=== PATIENT | male | born 1965 | race Caucasian/White ===

== ENCOUNTER 2020-08-09 10:28 | Emergency (ER) | payer OTHER, SELFPAY ==
--- OUTSIDE RECORDS SUMMARY | 2020-08-09 10:40 | XMS REPORT | Clinical Summary ---
:1965 Author Organization [facility] Address [address] [place] [address] Care Team Providers Name Role Phone Asked, Pcp Primary Care Provider Unavailable Allergies No Known Active Allergies Medications Medication Sig Dispensed Refills Start Date End Date Status atorvastatin Take 80 mg by 0 Act finesse (LIPITOR) 80 MG mouth daily. tablet atenolol (TENORMIN) Take 25 mg by 0 Active 25 MG tablet mouth daily. therapeutic Take 1 tablet by 0 A ctive multivitamin mouth daily. (THERAGRAN) tablet MOVANTIK 12.5 mg TAKE 1 TABLET 10 tablet 0 07/21/2019 Active tablet tablet (12.5 MG TOTAL) BY MOUTH DAILY FOR 10 DAYS. riFAMpin (RIFADIN) Take 1 capsule 82 capsule 0 07/04/201908/03 300 MG capsule (300 mg total) by mouth 2 (two) times a day for 41 days. ceFAZolin in 0.9% Infuse 50 mL (2 4500 mL 1 07/04/201908/14 sodium chloride g total) into a (ANCEF) 2 gram/50 mL venous catheter IVPB every 8 (eight) hours for 41 days. oxyCODone-acetaminop Take 1 tablet by 30 tablet 0 07/14/2019 0 08/13/2019 hen (PERCOCET) mouth every 4 10-325 mg per (four) hours as tabletIndications: needed for acute pain moderate pain for up to 30 days .Acute Pain. Max Daily Amount: 6 tablets Active Problems Problem Noted Date Infection of olecranon bursa, left 06/29/2019 Encounters Date Type Specialty Care Team Description 09/01/2019 Abstract Orthopedic Surgery Annie Galeano, ASHA 08/31/2019 Office Visit Orthopedic Surgery Ryder Simpson MD Trau matic arthritis elbow, left (Primary Dx); Status post so dware removal; S/P cubital baljinder aleks release; Aftercare follo wing surgery after 08/09/2019 Immunizations Name Administration Dates Next Due FLUCELVAX QUAD PF 07/04/2019 Surgical History Surgery Date Site/Laterality Comments ELBOW SURGERY 05/03/2003 - Left reconstruction 06/02/2003 REMOVAL, HARDWARE, 06/29/2019 Elbow/Left Procedure: LE FT ELBOW ELBOW HARDWARE REMOVAL AND CONTRACTURE RELE ASE; Surgeon: Ryder Simpson MD; Location: [facility] OP C 19 OR; Service: Orthope dics; Laterality: Left ; Medical History Medical History Date Comments Anesthesia NHAP; NFHAP Wears glasses for night driving Dental bridge present upper front perman ent Hypertension Hypercholesteremia Exercises daily rides bike, swim,ski ing and very active and climb stairs with no chest pain o r sob. Infection INFECTED HARDWARE LE FT ELBOW Social History Tobacco Use Types Packs/Day Years Used Date Current Every Day Smoker Cigars 3 Smokeless Tobacco: Never Used Comments: less than 1 cigar per week Alcohol Use Drinks/Week oz/Week Comments Yes 5 drinks per wee k Sex Assigned at Date Recorded Male 06/24/2019 10:17 AM [employer] Last Filed Vital Signs Not on file Plan of Treatment Health Maintenance Due Date Last Done Comments COVID-19 VACCINE (#1) 1981 COLONOSCOPY SCREENING 2015 SHINGLES VACCINES (#1) 2015 INFLUENZA VACCINE 03/03/2020 07/04/2019 Procedures Procedure Name Priority Date/Time Associated Diagnosis Comme nts XR ELBOW 2 VW LEFT Routine 08/31/2019 2:15 PM Traumatic arthr itis Results for this [employer] elbow, left procedure are in Status post hardware the res ults removal section. S/P cubital tunnel release Aftercare following surgery after 08/09/2019 Results XR Elbow 2 Vw Left (08/31/2019 2:15 PM [employer]) Specimen Narrative Performed At This result has an attachment that is no t available. Elbow reduced, some hardware retained, some post traumatic arthrosis [facility] Performing Organization Address City/State/ZIP Code Phon e Number [facility] [address] [place] [address] after 08/09/2019 [facility] [address] (Home) [facility] [phone] [place] [address] (Work) Advance Directives For more information, please contact: [phone] Type Date Recorded Patient Manager Hospital Explanati on Advance Directives, Living 06/29/2019 9:11 AM Will and Medical Power of Mission Manager
[2020-08-09 11:11] LABS: Basophils % 0.3 % (0-1.3); Hematocrit 32.7 % (39.6-49.0); Lymphocytes % 7.5 % (15.3-44.8); MPV 7.8 fL (7.6-11.3); RBC Red Blood Cell Count 3.63 M/uL (4.33-5.43)
--- NOTE | 2020-08-09 11:27 | RAD REPORT ---
EXAM DESCRIPTION: CT - Femur Left Wo Con - 08/09/2020 11:06 am CLINICAL HISTORY: Pain. unable to bear weight Trauma, pain and swelling. COMPARISON: No comparisons FINDINGS: Significant enlargement of the biceps femoris muscle is noted. There is large intramuscula r crescentic hematoma within the muscle measuring 3 cm in thickness. This is compatible with a signif icant intramuscular tear. The skin and adjacent subcutaneous fat she was inflammatory fat stranding. 5 cm hematoma is present as well deep to the left gluteus muscle. Overall soft tissue assessment is l imited by CT. No acute fracture or dislocation seen. No aggressive bone lesion. IMPRESSION: Significant intramuscular tear with intramuscular hematoma formation involving biceps fe ashli hamstring muscle. No fractures appreciated. MRI imaging could be obtained for followup assessment and superior soft tissue assessment. All CT scans are performed using dose optimization technique as appropriate and may include automated exposure control or mA/KV adjustment according to patient size.
--- NOTE | 2020-08-09 11:41 | ER ---
Nurse's Notes [facility] Name: Clayton Hyatt Age: 55 yrs Sex: Male : 1965 Arrival Date: 08/09/2020 Time: 10:29 Bed 18 Private MD: Diagnosis: Acute Biceps Femoris Tear left leg;Hematoma left leg Presentation: 08/09 10:30 Chief complaint: Patient states: Injured L leg 8 days ago while snow boarding. Sudden ll1 onset of pain at work today to LUE. No new trauma or falls since initial accident. Coronavirus screen: Client denies travel out of the [place] in the last 14 days. At this time, the client does not indicate any symptoms associated with coronavirus-19. Ebola Screen: Patient denies travel to an Ebola-affected area in the 21 days before illness onset. Initial Sepsis Screen: Does the patient meet any 2 criteria? No. Patient's initial sepsis screen is negative. Does the patient have a suspected source of infection? No. Patient's initial sepsis screen is negative. Risk Assessment: Do you want to hurt yourself or someone else? Patient reports no desire to harm self or others. Onset of symptoms was August 02, 2020. 10:30 Method Of Arrival: EMS: [facility] ll1 10:30 Acuity: YOSE[facility]N 3 ll1 10:39 Chief complaint: EMS states: 20 G R AC Fentanyl 50 mg IV x 3. ll1 Historical: - Allergies: 10:30 No Known Allergies; ll1 - PMHx: 10:30 Hypertension; High Cholesterol; ll1 - PSHx: 10:30 L arm FX with repair; ll1 - Immunization history:: Flu vaccine is not up to date. - Social history:: Smoking status: Patient denies any tobacco usage or history of. Screenin:32 Abuse screen: Denies threats or abuse. Nutritional screening: No deficits noted. ll1 Tuberculosis screening: No symptoms or risk factors identified. Fall Risk None identified. IV access (20 points). Gait- Weak (10 pts.). Total Bermudez Fall Scale indicates Low Risk Score (25-44 pts). Fall prevention measures have been instituted. Side Rails Up X 2 Frequent Obs/Assesments occuring As available Patient and Family Educated on Fall Prevention Program and strategies. Assessment: 10:30 General: Appears uncomfortable, Behavior is calm, cooperative, appropriate for age. ll1 Pain: Complains of pain in LUE Pain currently is 4 out of 10 on a pain scale. Quality of pain is described as aching, Aggravated by increased activity. Neuro: No deficits noted. Cardiovascular: No deficits noted. Respiratory: No deficits noted. Musculoskeletal: Circulation, motion, and sensation intact. Capillary refill < 3 seconds, Tenderness present in L lateral leg Reports pain in L lateral thigh/leg. Injury Description: Bruise. 11:30 Reassessment: No changes from previously documented assessment. Patient and/or family ll1 updated on plan of care and expected duration. Pain level reassessed. Patient is alert, oriented x 3, equal unlabored respirations, skin warm/dry/pink. 12:30 Reassessment: No changes from previously documented assessment. Patient and/or family ll1 updated on plan of care and expected duration. Pain level reassessed. Patient is alert, oriented x 3, equal unlabored respirations, skin warm/dry/pink. Patient states feeling better. 12:53 Reassessment: PMS intact pre and post splint application. . ll1 Vital Signs: 10:30 BP 111 / 76; Pulse 64; Resp 17; Temp 97.7; Pulse Ox 100% on R/A; Weight 75.75 kg; ll1 Height 5 ft. 7 in. (170.18 cm); Pain 4/10; 11:30 BP 135 / 86; Pulse 57; Resp 17; Pulse Ox 100% ; ll1 12:49 BP 142 / 80; Pulse 60; Resp 18; Pulse Ox 100% ; Pain 5/10; ll1 10:30 Body Mass Index 26.16 (75.75 kg, 170.18 cm) ll1 ED Course: 10:29 Patient arrived in ED. ll1 10:29 Arm band placed on Patient placed in an exam room, on a stretcher. ll1 10:32 Triage completed. ll1 10:33 Jonathan Haji PA is PHCP. jr8 10:33 Vernon Jay MD is Attending Physician. jr8 10:33 Lorelei Ansari RN is Primary Nurse. ll1 10:33 Patient has correct armband on for positive identification. Bed in low position. Call ll1 light in reach. Side rails up X 1. Pulse ox on. NIBP on. 10:58 Initial lab(s) drawn, by me, sent to lab. 3 11:03 CK Sent. dh3 11:03 Basic Metabolic Panel Sent. 3 11:03 CBC with Diff Sent. dh3 11:07 Femur Left Wo Con In Process Unspecified. EDMS 11:10 Maintain EMS IV. Dressing intact. Good blood return noted. Site clean \T\ dry. Gauge \T\ ll 1 site: 20 G R AC. 11:39 Dallas Lovell MD is Referral Physician. jr8 12:31 Crutch training done. Santo wrap to left knee Knee immobilizer applied on left knee. jp3 12:52 No provider procedures requiring assistance completed. IV discontinued, intact, ll1 bleeding controlled, No redness/swelling at site. Pressure dressing applied. Administered Medications: 11:49 Drug: morphine 4 mg Route: IVP; Site: right antecubital; ll1 12:53 Follow up: Response: No adverse reaction; Pain is decreased; RASS: Alert and Calm (0) 1 11:49 Drug: Zofran (Ondansetron) 4 mg Route: IVP; Site: right antecubital; ll1 12:53 Follow up: Response: No adverse reaction; RASS: Alert and Calm (0) ll1 Outcome: 11:40 Discharge ordered by . jr8 12:54 Discharged to home via wheelchair. 1 12:54 Condition: stable 12:54 Discharge instructions given to patient, Instructed on discharge instructions, follow up and referral plans. medication usage, crutch walking, Demonstrated understanding of instructions, follow-up care, medications, crutch walking, splint care, Prescriptions given X 2. 12:54 Patient left the ED. 1 Signatures: Dispatcher [employer] EDNY Jonathan Haji PA PA jr8 Katia Buenrostro 3 David Macias 3 Lorelei Ansari, RN RN ll1
--- NOTE | 2020-08-09 11:41 | EDPHYS ---
Physician Documentation [facility] Name: Clayton Hyatt Age: 55 yrs Sex: Male : 1965 Arrival Date: 08/09/2020 Time: 10:29 Bed 18 Private MD: ED Physician Vernon Jay HPI: 08/09 11:28 This 55 yrs old Male presents to ER via EMS with complaints of Leg Pain. jr8 11:28 The patient presents with decreased range of motion, pain, spasm, tenderness. The jr8 complaints affect the left hamstring. Onset: The symptoms/episode began/occurred acutely, today. Modifying factors: The symptoms are alleviated by nothing. the symptoms are aggravated by movement, weight bearing, bending knee. Associated signs and symptoms: The patient has no apparent associated signs or symptoms. The patient has not experienced similar symptoms in the past. The patient has not recently seen a physician. Patient stated that he has been healing from bruises secondary to snow board accidents on vacation. Had been doing well until today. Stated that he was at work standing drinking coffee when he had sudden spasm in back of left leg that caused him to go to the ground and not be able to walk. Patient brought in by EMS after being evaluated by [facility] med at work site . Historical: - Allergies: 10:30 No Known Allergies; ll1 - PMHx: 10:30 Hypertension; High Cholesterol; ll1 - PSHx: 10:30 L arm FX with repair; ll1 - Immunization history:: Flu vaccine is not up to date. - Social history:: Smoking status: Patient denies any tobacco usage or history of. ROS: 11:28 Eyes: Negative for injury, pain, redness, and discharge, ENT: Negative for injury, jr8 pain, and discharge, Neck: Negative for injury, pain, and swelling, Cardiovascular: Negative for chest pain, palpitations, and edema, Respiratory: Negative for shortness of breath, cough, wheezing, and pleuritic chest pain, Abdomen/GI: Negative for abdominal pain, nausea, vomiting, diarrhea, and constipation, Back: Negative for injury and pain, Skin: Negative for injury, rash, and discoloration, Neuro: Negative for headache, weakness, numbness, tingling, and seizure. 11:28 MS/extremity: Positive for ecchymosis, pain, swelling, tenderness, of the left hamstring. Exam: 11:28 Constitutional: This is a well developed, well nourished patient who is awake, alert, jr8 and in no acute distress. Cardiovascular: Regular rate and rhythm with a normal S1 and S2. No gallops, murmurs, or rubs. Normal PMI, no JVD. No pulse deficits. Respiratory: Lungs have equal breath sounds bilaterally, clear to auscultation and percussion. No rales, rhonchi or wheezes noted. No increased work of breathing, no retractions or nasal flaring. Abdomen/GI: Soft, non-tender, with normal bowel sounds. No distension or tympany. No guarding or rebound. No evidence of tenderness throughout. Back: No spinal tenderness. No costovertebral tenderness. Full range of motion. Skin: Warm, dry with normal turgor. Normal color with no rashes, no lesions, and no evidence of cellulitis. Neuro: Awake and alert, GCS 15, oriented to person, place, time, and situation. Cranial nerves II-XII grossly intact. Motor strength 5/5 in all extremities. Sensory grossly intact. 11:28 Musculoskeletal/extremity: Extremities: grossly normal except: noted in the left hamstring: Patient has circumferential swelling to left thigh with bruising noted to great trochanter region. Tender over the hamstring region. Mild pitting edema noted lateral thigh. Full ROM present but with pain. Pulses 2+ PT and DP right and left side , Sensation intact. Vital Signs: 10:30 BP 111 / 76; Pulse 64; Resp 17; Temp 97.7; Pulse Ox 100% on R/A; Weight 75.75 kg; ll1 Height 5 ft. 7 in. (170.18 cm); Pain 4/10; 11:30 BP 135 / 86; Pulse 57; Resp 17; Pulse Ox 100% ; ll1 12:49 BP 142 / 80; Pulse 60; Resp 18; Pulse Ox 100% ; Pain 5/10; ll1 10:30 Body Mass Index 26.16 (75.75 kg, 170.18 cm) ll1 MDM: 10:33 Patient medically screened. jr8 11:38 Data reviewed: vital signs, nurses notes, lab test result(s), radiologic studies, CT jr8 scan. Data interpreted: Pulse oximetry: on room air is 100 %. Interpretation: normal. Counseling: I had a detailed discussion with the patient and/or guardian regarding: the historical points, exam findings, and any diagnostic results supporting the discharge/admit diagnosis, lab results, radiology results, the need for outpatient follow up, a orthopedic surgeon, to return to the emergency department if symptoms worsen or persist or if there are any questions or concerns that arise at home. 08/09 10:46 Order name: CBC with Diff 8 08/09 10:46 Order name: Basic Metabolic Panel; Complete Time: 11:37 jr8 08/09 10:46 Order name: CK; Complete Time: 11:37 jr8 08/09 10:52 Order name: Femur Left Wo Con; Complete Time: 11:37 EDMS 08/09 11:39 Order name: Knee Immobilizer; Complete Time: 12:32 jr8 08/09 11:39 Order name: Crutches; Complete Time: 12:32 Administered Medications: 11:49 Drug: morphine 4 mg Route: IVP; Site: right antecubital; ll1 12:53 Follow up: Response: No adverse reaction; Pain is decreased; RASS: Alert and Calm (0) ll1 11:49 Drug: Zofran (Ondansetron) 4 mg Route: IVP; Site: right antecubital; ll1 12:53 Follow up: Response: No adverse reaction; RASS: Alert and Calm (0) ll1 Disposition: 15:57 Co-signature as Attending Physician, Vernon Jay MD I agree with the assessment and kdr plan of care. Disposition: 08/09/20 11:40 Discharged to Home. Impression: Acute Biceps Femoris Tear left leg, Hematoma left leg . - Condition is Stable. - Discharge Instructions: Muscle Pain, Adult. - Prescriptions for Robaxin 500 mg Oral Tablet - take 2 tablet by ORAL route every 6 hours As needed; 40 tablet. Tylenol- Codeine #3 300-30 mg Oral Tablet - take 2 tablets by ORAL route every 6 hours As needed; 20 tablet. - Medication Reconciliation Form, Thank You Letter, Antibiotic Education, Prescription Opioid Use, Work release form form. - Follow up: Dallas Lovell MD; When: 2 - 3 days; Reason: Recheck today's complaints, Continuance of care, Re-evaluation by your physician. - Problem is new. - Symptoms have improved. - Notes: Ice Rest Elevate Non weight bear on affected leg Signatures: Dispatcher [employer] EDMS Vernon Jay MD MD kdr Roszak, Josh, PA PA jr8 Lorelei Ansari RN RN ll1 Corrections: (The following items were deleted from the chart) 12:54 11:40 08/09/2020 11:40 Discharged to Home. Impression: Acute Biceps Femoris Tear left ll1 leg; Hematoma left leg . Condition is Stable. Forms are Medication Reconciliation Form, Thank You Letter, Antibiotic Education, Prescription Opioid Use. Follow up: Dallas Lovell; When: 2 - 3 days; Reason: Recheck today's complaints, Continuance of care, Re-evaluation by your physician. Problem is new. Symptoms have improved. jr8
[2020-08-09] MEDS ORDERED: MORPHINE 4 MG/ML SYR ONE (11:58)
[2020-08-09] MEDS ORDERED: ONDANSETRON 4 MG/2 ML VIAL ONE (11:59)
[2020-08-09 13:07] LABS: Platelet Estimate ADEQ; White Blood Cell Scan OK (OK)
[2020-08-09 13:08] LABS: Blood Morphology Comment NOT SEEN (NOT SEEN)
== END 2020-08-09 12:54 | disposition home or self-care (01) ==
LOC: ER 10:28
DX: S76.812A Strain of other specified muscles, fascia and tendons at thigh level, left thigh, initial encounter (principal); S80.12XA Contusion of left lower leg, initial encounter; X58.XXXA Exposure to other specified factors, initial encounter; Y93.23 Activity, snow (alpine) (downhill) skiing, snowboarding, sledding, tobogganing and snow tubing; Y92.9 Unspecified place or not applicable; I10 Essential (primary) hypertension
CPT/HCPCS: 85025; 80048; 36415; 82550; 73700; 96375; 96374; 99284; J2405

== ENCOUNTER 2024-07-02 15:56 | Emergency (ER) | payer OTHER ==
[2024-07-02 16:29] LABS: Absolute Basophils 0.1 K/uL (0-0.5); Absolute Lymphocytes (CBC) 2.2 K/uL (0.7-4.9); Absolute Neutrophil 26.5 K/uL (1.8-8.0); Basophils % 0.4 % (0-1.3); Hematocrit 48.9 % (39.6-49.0); Hemoglobin 15.9 g/dL (13.6-17.9); Lymphocytes % 7.1 % (15.3-44.8); MCH 29.2 pg (27.0-35.0); MCHC 32.5 g/dL (32.0-36.0); MPV 8.3 fL (7.6-11.3); Monocytes % 6.4 % (3.3-12.3); Neutrophils % 86.1 % (41.7-73.7); Platelets 313 thou/uL (152-406); RBC Red Blood Cell Count 5.43 M/uL (4.33-5.43); Red Cell Distribution Width 14.9 % (12.1-15.2)
[2024-07-02 16:42] LABS: Anion Gap 12.3 mEq/L (5.0-15.0); Potassium 3.3 mEq/L (3.5-5.1)
[2024-07-02] MEDS ORDERED: NA CHLORIDE 0.9% 1,000 ML ONE (16:45)
--- NOTE | 2024-07-02 16:47 | RAD REPORT ---
EXAMINATION: CT HEAD WITHOUT CONTRAST CT CERVICAL SPINE WITHOUT CONTRAST CLINICAL INDICATION: Male, 58 years old. TRAUMA TECHNIQUE: Axial CT images from the skull base to the vertex without intravenous contrast. Axial CT i mages through the cervical spine were obtained without intravenous contrast. Sagittal and coronal reformatted images were created from the data set. Coronal and sagittal reformatted images were creat ed from the data set. One or more of the following dose reduction techniques were used: Automated exposure control, adjustment of the mA and/or kV according to patient size, and/or iterative reconstr uction. Unless otherwise specified, incidental findings do not require dedicated imaging follow-up. [id number]. COMPARISON: No prior exam. FINDINGS: Head: INTRACRANIAL: No acute intracranial hemorrhage. No hydrocephalus. No mass effect or midline shift. No significant white matter disease. VASCULATURE: No visualized abnormalities in the arteries or dural venous sinuses. SCALP/SKULL: No significant soft tissue or osseous abnormalities. SINUSES: The visualized paranasal sinuses and mastoid air cells are predominantly clear. Cervical spine: ALIGNMENT: The cervical spine has normal alignment without scoliosis or spondylolisthesis. BONE: Vertebral body heights are maintained. No aggressive osseous lesions. Partial fusion of the pos terior elements at C2-3 is likely developmental. . DEGENERATIVE CHANGES: Neural foraminal narrowing is also present this level. Mild central spinal sten osis is present C5-6 secondary to posterior disc osteophyte complex. SOFT TISSUE: No significant abnormalities in the soft tissue of the neck. The visualized lung apices are clear. IMPRESSION: No acute intracranial abnormality. No acute fracture or traumatic malalignment of the cervical spine. Left supraclavicular hematoma with gas.
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
[2024-07-02 17:13] LABS: Albumin 3.4 g/dL (3.4-5.0); Albumin/Globulin Ratio 1.1 (1.1-1.8); Bilirubin Direct 0.2 mg/dL (0-0.2); Bilirubin Indirect, Calculated 0.3 mg/dL (0.2-0.8); Bilirubin Total 0.5 mg/dL (0.2-1.0); Globulin 3.2 g/dL (2.3-3.5); Protein, Total 6.6 g/dL (6.4-8.2)
[2024-07-02 17:25] LABS: PT Prothrombin Time 11.3 SECONDS (9.4-12.5); Protime INR 1.01
--- NOTE | 2024-07-02 17:36 | RAD REPORT ---
EXAMINATION: Shoulder Left 2+ Views CLINICAL INDICATION: Male, 58 years old. PAIN COMPARISON: No prior exam. FINDINGS: No acute fracture. No malalignment/dislocation. Mild left AC joint degenerative changes. Other: n/a IMPRESSION: No acute osseous abnormality.
[2024-07-02 19:24] LABS: Blood Morphology Comment NOT SEEN (NOT SEEN); Platelet Estimate ADEQ; White Blood Cell Scan OK (OK)
[2024-07-02 19:34] VITALS: TEMP 97.9; O2SAT 100
[2024-07-02 19:35] VITALS: BP 129/88
--- NOTE | 2024-07-03 14:11 | EKG ---
Test Date: 2024-07-02 Test Time: 16:53:22 Clutch Assembler: AM MEASUREMENT RESULTS: Intervals: Rate: 76 NH: 152 QRSD: 104 QT: 400 QTc: 450 Laura: P: 57 NH: 152 QRS: -17 T: 41 INTERPRETIVE STATEMENTS: Normal sinus rhythm Normal ECG Compared to ECG 07/04/2014 03:55:22 Sinus bradycardia no longer present Myocardial infarct finding no longer present Electronically Signed On 07-03-24 14:10:38 DRY CLEANING TEACHER by Juan Chaudhry
== END 2024-07-02 17:33 | disposition short-term general hospital (02) ==
LOC: ER 15:56
DX: S27.1XXA Traumatic hemothorax, initial encounter (principal); S09.90XA Unspecified injury of head, initial encounter
CPT/HCPCS: 93005; 85025; 80048; 36415; 86900; 86850; 85610; 82565; 86901; 80076; 83690; 70450; 72125; 71260; 74177; 73030; 96360; 99285; Q9967; J7030